=== PATIENT | female | born 1950 | race Caucasian/White ===

== ENCOUNTER 2017-01-05 01:04 | Inpatient (IN) | payer MEDICARE, OTHER ==
[2017-01-05 02:15] LABS: % BASOPHILS 0.3 % (0.0-2.0); % LYMPHOCYTES 25.2 % (20.0-50.0); % MONOCYTES 4.9 % (2.0-10.0); % NEUTROPHILS 68.6 % (40.0-80.0); MEAN CELL VOLUME 88.2 fl (81-100); MEAN CORPUSCULAR HEMOGLOBIN 28.8 pg (27.0-31.0); MEAN CORPUSCULAR HGB CONC 32.7 pg (28.0-36.0); MEAN PLATELET VOLUME 7.9 fl; NEUTROPHILE ABSOLUTE 4.8 Th/cmm (1.8-8.0); RED BLOOD COUNT 4.62 Mil/cmm (3.80-5.10); RED CELL DISTRIBUTION WIDTH 14.1 % (11.5-20.0)
--- NOTE | 2017-01-05 02:16 | ED Physician Chart ---
Chief Complaint/HPI - Patient Information Date Seen:: 01/05/17 Time Seen:: 01:14 Chief Complaint:: agitation History of Present Illness:: THIS IS A 66 YO FEMALE SENT FROM A [facility] FOR [facility]ALUATION AND TREATMENT FOR HER MENTAL ISSUES WELL SIGNIFICANT WEIGHT LOSS. SHE HAS LOSS 22 LBS IN THREE WEEKS. Allergies:: Allergies Allergy/AdvReac Type Severity Reaction Status Date / Time codeine AdvReac Verified 01/05/17 01:32 tetracycline AdvReac Verified 01/05/17 01:32 Vitals:: Vital Signs - 8 hr 01/05/17 01/05/17 01:05 01:10 Temp 98.1 F 98.1 F HR 75 75 RR 18 18 BP 130/79 130/79 O2 Sat % 97 97 Historian:: EMS, Medical Records Review:: Nurse's Note Reviewed, Old Chart Reviewed, Transfer documents Reviewed Review of Systems - Review of Systems General/Constitutional: No fever, No chills, No weight loss, No weakness, No diaphoresis, No edema, No loss of appetite, Other (THIS PATIENT IS UNABLE TO GIVE A REVIEW OF SYSTEMS AT THIS TIME) Skin: No skin lesions, No rash, No bruising Head: No headache, No light-headedness Eyes: No loss of vision, No pain, No diplopia ENT: No earache, No nasal drainage, No sore throat, No tinnitus Neck: No neck pain, No swelling, No thyromegaly, No stiffness, No mass noted Cardio Vascular: No chest pain, No palpitations, No PND, No orthopnea, No edema Pulmonary: No SOB, No cough, No sputum, No wheezing GI: No nausea, No vomiting, No diarrhea, No pain, No melena, No hematochezia, No constipation, No hematemesis G/U: No dysuria, No frequency, No hematuria Musculoskeletal: No bone or joint pain, No back pain, No muscle pain Endocrine: No polyuria, No polydipsia Psychiatric: No prior psych history, No depression, No anxiety, No suicidal ideation Hematopoietic: No bruising, No lymphadenopathy Allergic/Immuno: No urticaria, No angioedema Neurological: No syncope, No focal symptoms, No weakness, No paresthesia, No headache, No seizure, No dizziness, No confusion, No vertigo Past Medical History - Past Medical History Obtainable: Yes Past Medical History: HTN, Asthma/COPD, Dementia, Other (ENCEPHALOPATHY, DEPRESSION, HEP C, BRAIN CA.) Family History: None Social History: Non Smoker, No Alcohol, No Drug Use, Care Facility Surgical History: Appendectomy, other (RIGHT KNEE REPLACEMENT, TUBALIGATION, C- SPINE SURGERY.) Psychiatricy History: Depression Medication: Reviewed Family Medical History - Family Member Niece History Unknown: Yes Physical Exam - Physical Examination General/Constitutional: Awake, Well-developed, well-nourished, Alert, No distress, GCS 15, Non-toxic appearing, Ambulatory Head: Atraumatic Eyes: Lids, conjuctiva normal, PERRL, EOMI Skin: Nl inspection, No rash, No skin lesions, No ecchymosis, Well hydrated, No lymphadenopathy ENMT: External ears, nose nl, Nasal exam nl, Lips, teeth, gums nl Neck: Nontender, Full ROM w/o pain, No JVD, No nuchal rigidity, No bruit, No mass, No stridor Respiratory: Nl effort/Exclusion, Clear to Auscultation, No Wheeze/Rhonchi/Rales Cardio Vascular: RRR, No murmur, gallop, rubs, NL S1 S2 GI: No tenderness/rebounding/guarding, No organomegaly, No hernia, Normal BS's, Nondistended, No mass/bruits, No McBurney tenderness : No CVA tenderness Extremities: No tenderness or effusion, Full ROM, normal strength in all extremities, No edema, Normal digits & nails Neuro/Psych: Alert/oriented, DTR's symmetric, Normal sensory exam, Normal motor strength, Judgement/insight normal, Mood normal (DEPRESSED MOOD), Normal gait, No focal deficits Misc: normal gait, Normal back, No paraspinal tenderness Labs/Radiology/EKG Results - Lab Results Results: Abnormal Lab Results 01/05/17 01/05/17 01/05/17 01:58 01:58 01:58 WBC 7.0 RBC 4.62 Hgb 13.3 D Hct 40.7 D MCV 88.2 MCH 28.8 MCHC Differential 32.7 RDW 14.1 Plt Count 331 D MPV 7.9 Neutrophils % 68.6 Lymphocytes % 25.2 Monocytes % 4.9 Eosinophils % 1.0 Basophils % 0.3 Sodium 137 Potassium 3.4 L Chloride 107 Carbon Dioxide 26.2 Anion Gap 7.2 BUN 5 L Creatinine 0.7 Est GFR ( Amer) > 60.0 Est GFR (Non-Af Amer) > 60.0 BUN/Creatinine Ratio 7.1 Glucose 86 Calcium 9.5 Total Bilirubin 0.6 AST 24 ALT 8 Alkaline Phosphatase 68 Total Protein 7.2 Albumin 3.5 L Globulin 3.7 Albumin/Globulin Ratio 1.0 Triglycerides 110 Cholesterol 159 LDL Cholesterol Direct 105 HDL Cholesterol 41 - EKG Interpretations EKG Time:: 01:38 Rate & Rhythm: RATE=81 SINUS Matheson: RIGHT AXIS Assessment - Assessment General Assessment: PSYCHOSIS ED Septic Shock - . Is Septic Shock (SBP<90, OR Lactate>4 mmol\L) present?: No - <6hrs of presentation: Vital Signs: Vital Signs - 8 hr 01/05/17 01/05/17 01:05 01:10 Temp 98.1 F 98.1 F HR 75 75 RR 18 18 BP 130/79 130/79 O2 Sat % 97 97 Reassessment (Disposition) - Reassessment Reassessment Condition:: Unchanged - Diagnosis Diagnosis:: PSYCHOSIS - Patient Disposition Discharge/Transfer:: Acute Care w/in this hosp Admitting Medical Physician:: Bib Singh Admitting Psych Physician:: Robyn Han Condition at Disposition:: Unchanged
[2017-01-05 02:33] LABS: ALKALINE PHOSPHATASE 68 U/L (34-104); ANION GAP 7.2 (7.0-16.0); BILIRUBIN,TOTAL 0.6 mg/dL (0.3-1.0); BUN - UREA NITROGEN 5 mg/dL (7-25); BUN/CREATININE RATIO 7.1; CALCIUM SERUM 9.5 mg/dL (8.6-10.3); CARBON DIOXIDE 26.2 mEq/L (21.0-31.0); CHLORIDE 107 mEq/L (98-107); CREATININE - SERUM 0.7 mg/dL (0.6-1.2); GLUCOSE 86 mg/dL (70-105); HEMATOCRIT 40.7 % (35.0-45.0); HEMOGLOBIN 13.3 gm/dL (11.7-15.5); PLATELET COUNT 331 Th/cmm (150-400); POTASSIUM SERUM 3.4 mEq/L (3.5-5.1); SGOT 24 U/L (13-39); SGPT/ALT 8 U/L (7-52); SODIUM SERUM 137 mEq/L (136-145)
[2017-01-05 02:34] LABS: CHOLESTEROL 159 mg/dL (<200); TRIGLYCERIDES 110 mg/dL (<150)
[2017-01-05 02:42] LABS: URINE BILIRUBIN NEGATIVE (NEGATIVE); URINE BLOOD NEGATIVE (NEGATIVE); URINE COLOR YELLOW; URINE GLUCOSE (UA) NEGATIVE (NEGATIVE); URINE KETONE NEGATIVE (NEGATIVE); URINE PH 6.5; URINE PROTEIN NEGATIVE (NEGATIVE); URINE UROBILINOGEN 0.2 E.U./dL (0.2 - 1.0)
[2017-01-05 02:44] LABS: URINE BACTERIA NONE SEEN /hpf (NONE SEEN); URINE EPITHELIAL CELLS MANY /lpf (FEW); URINE RBC NONE SEEN /hpf (0-5)
[2017-01-05 02:56] LABS: INR 1.02 (0.5-1.4); PROTHROMBIN TIME (TEST) 10.6 SECONDS (9.5-11.5)
[2017-01-05 03:18] VITALS: BP 130/76
[2017-01-05] MEDS ORDERED: Magnesium Hydroxide (MOM) 30 mL UDC PO PRN (03:24)
[2017-01-05] MEDS ORDERED: Maalox 30 mL Cup PO PRN (03:24)
[2017-01-05] MEDS ORDERED: Lactulose 10 Gm/15 mL 30mL UDC PO PRN (03:25)
[2017-01-05] MEDS ORDERED: Haloperidol Lactate 5 mg/mL 1mL Vial IM ONE (08:03)
[2017-01-05] MEDS: Multivitamin Tab PO SCH (10:00)
[2017-01-05] MEDS ORDERED: Potassium Chloride 20 mEq ER Tab PO ONE (17:07)
--- NOTE | 2017-01-05 19:05 | Psychosocial Evaluation ---
DATE OF SERVICE: 01/05/2017 IDENTIFYING DATA: The patient is a 66-year-old woman, resident of [facility] in [place]. Information obtained directly interviewing the patient as well as reviewing the admission papers. JUSTIFICATION FOR HOSPITALIZATION: The patient is admitted here on a voluntary basis in view of her acute agitation and aggressive behavior. CHIEF COMPLAINT: "I don't understand why " HISTORY OF PRESENT ILLNESS: This is the one of multiple psychiatric hospitalizations for this patient, who is reported to have been getting easily agitated and has been screaming and yelling, and the patient has been referred over here for stabilization from the [facility] in [place]. The patient is being followed up by Dr. Robbins on an outpatient basis and has been diagnosed to have major depressive disorder, rule out bipolar disorder. The patient has been on at one time Seroquel and Zyprexa and also has been receiving the Remeron. The patient has been reporting that she is not able to sleep and has been smoking marijuana for the past couple of weeks. The patient at this time is adamant that she should be allowed to call her children to come and then take care of her. The patient is very frustrated and getting agitated. The patient has to be given a dose of Ativan, which has not been able to calm her down. Then, it was changed to a dose of the Haldol along with the Ativan. PAST PSYCHIATRIC HISTORY: Please refer to the above. The patient was hospitalized under my care in March. MEDICAL HISTORY: Physical examination is requested to be done by Dr. Gonzalez. SUBSTANCE ABUSE HISTORY: The patient has been smoking marijuana, but denies any alcohol abuse. PHYSICAL OR SEXUAL ABUSE HISTORY: None. LEGAL PROBLEMS: None at this time. SOCIAL HISTORY: The patient is a resident of [facility]. STRENGTH AND ASSETS: The patient is very irritable, angry, and has been getting easily agitated. MENTAL STATUS EXAMINATION: The patient is a 66-year-old woman, looking her stated age, very agitated. The patient is insisting that she should be transferred to [facility] rather than to [place]. The patient is stating that she . The patient has been getting easily agitated and upset. Insight and judgment at this time are noted to be impaired. Impulse control seems to be poor. The patient has short-term memory problems, but long-term memory seems to be intact. The patient denies any active hallucinations or delusions are noted. DIAGNOSTIC IMPRESSION: AXIS I: 1a. Major depressive disorder, recurrent and severe. 1b. Rule out bipolar disorder. AXIS II: None. AXIS III: As per Dr. Gonzalez. IMMEDIATE TREATMENT PLAN: The patient is going to be observed on inpatient unit, provided with supportive psychotherapy. The patient is going to be encouraged to participate in the groups and verbalize the concerns. The patient is going to be continued on the Remeron and low dose of the Seroquel is going to be given to her. ESTIMATED LENGTH OF STAY: 5-7 days. DISCHARGE CRITERIA: When she no longer a threat to self or others and be able to cope up with the stress. JOB# [id number]
--- NOTE | 2017-01-05 20:22 | Consultation ---
DATE OF CONSULTATION: 01/05/2017 ATTENDING PHYSICIAN: Robny Han M.D. HISTORY OF PRESENT ILLNESS: This is a 66-year-old female with medical history of encephalopathy, who was brought in because of agitation. A few hours prior to admission, the patient was found to be uncooperative, belligerent, and agitated towards staff and residents. She was brought down to the Emergency Room and subsequently admitted to [facility]. PAST MEDICAL HISTORY: 1. Essential hypertension. 2. Bronchial asthma/COPD. 3. Dementia with behavioral disturbance. 4. Metabolic encephalopathy. 5. Depression. 6. Hepatitis C. 7. History of brain CA. 8. Malnutrition. PAST SURGICAL HISTORY: 1. Status post right total knee replacement. 2. Status post tubal ligation. 3. Status post C-spine surgery. CURRENT MEDICATIONS: The patient is currently on acetaminophen, haloperidol, Atarax, lactulose, lorazepam, magnesium hydroxide, Mirtazapine, multivitamins, pyridoxine, tramadol, Zolpidem. ALLERGIES: ALLERGIC TO CODEINE AND TETRACYCLINE. FAMILY AND SOCIAL HISTORY: I was not able to obtain from the patient because she remains uncooperative. REVIEW OF SYSTEMS: Again, I was not able to decipher directly from the patient because of her mental status. PHYSICAL EXAMINATION: GENERAL: The patient is alert, somewhat agitated at the present time, uncooperative. VITAL SIGNS: Blood pressure is 157/78, pulse 96, temperature 98.6 degrees. SKIN: Good turgor, warm, no rash, no jaundice appreciated. HEENT: Head: Normocephalic, atraumatic. Eyes: Extraocular muscles intact, unable to assess the pupils because the patient is uncooperative, pink conjunctivae, anicteric sclerae. Nose: Midline nasal septum. Mouth: Moist mucosa with adequate dentition. NECK: Supple, no adenopathy, no thyromegaly, no bruits. Trachea palpated in the midline. CHEST AND CVS: S1, S2. No rub, murmur, no gallop appreciated. Point of maximal impulse fifth intercostal space left midclavicular line. No abdominal or femoral bruits appreciated. LUNGS: Equal expansion. No use of accessory muscles. No supraclavicular retractions. Decreased breath sounds. Clear to auscultation without any wheeze. BREAST: Unable to perform, the patient was not cooperative. ABDOMEN: Flat, soft. Positive for bowel sounds. No bruits either diastolic or systolic. RECTAL AND GENITOURINARY: Again, I was not able to perform because the patient is not cooperative. MUSCULOSKELETAL: No effusions present in her joints with adequate range of motion. EXTREMITIES: No evidence of edema, cyanosis nor clubbing with palpable femoral, unable to fully appreciate popliteal and dorsalis pedis pulses. NEUROLOGIC: The patient is awake, verbal, but confused, agitated at the present time, so I was not able to pursue further my neuro exam. LABORATORY DATA: Did reveal a white count 7, hemoglobin 13.3, hematocrit 40.7, platelets 221, polys 68%. Sodium 137, potassium 3.4, chloride 107, bicarbonate 26, BUN 5, creatinine 0.7, albumin 3.5, triglycerides 110, cholesterol 159, LDL 105, HDL , TSH 1.67. IMPRESSION: 1. Acute decompensation of psychosis. 2. Dementia with behavioral disturbance. 3. Depression. 4. Metabolic encephalopathy. 5. Hepatitis C. 6. History of brain CA. 7. Malnutrition. 8. Hypokalemia. PLAN: 1. Replace potassium. 2. Continue all the psych meds. 3. Continue with psych support. Thank you, Dr. Han for this consult. I will follow the patient closely with you. JOB# [id number]
[2017-01-05] MEDS ORDERED: PYRIDOXINE PO SCH (21:00)
[2017-01-05] MEDS ORDERED: MELATONIN PO SCH (21:00)
[2017-01-06] MEDS: Multivitamin Tab PO SCH (08:09)
--- NOTE | 2017-01-06 14:30 | Psych Progress Note ---
Psych Progress Note - Intro Date of Progress Note: 01/06/17 - Assessment Assessment: I am upset . I need to go to [facility]. - Vitals, I&O Vitals: Vital Signs - 24 hr 01/05/17 01/06/17 01/06/17 20:00 06:51 10:53 Temp 98.2 F HR 98 HR [Left Radial 98 ] RR 19 21 21 BP 136/77 O2 Sat % 99 - ROS Psychological ROS: Report: Anxiety, Behavioral Disorder, Concentration difficulty, Depression, Irritability, Memory difficulties, Mood swings, Sleep Disturbances Neurological: Report: Behavorial changes, Dizziness, Gait Disturbance - Objective Psych General Appearance: Report: No acute distress, Casually dressed Psych Behavior: Report: Alert, Restless, Agitated Psych Speech: Report: Loud Psych Mood: Report: Angry, Frustrated, Hostile, Irritable, Labile Psych Affect: Report: Approp. content of speech, Labile Psych Thought Process: Report: Paranoid Psych Cognition: Report: Grossly Intact Psych Insight: Report: Impaired Psych Judgement: Report: Impaired - Plan Plan: To continue currrent meds and follow patient with supportive therapy.. - Review of Relevant Data Review of Relevant Data: I have reviewed the following items and time patience (where applicable) has been applied. - Medications Current Medications: Current Medications Acetaminophen (Tylenol) 650 mg PO Q4HR PRN PRN Reason: Pain (Mild) Stop: 03/06/17 03:24 Al Hydrox/Mg Hydrox/Simethicone (Maalox) 30 ml PO Q6H PRN PRN Reason: Dyspepsia Stop: 03/06/17 03:23 Hydroxyzine HCl (Atarax) 10 mg PO HS EVANGELISTA PRN Reason: Protocol Stop: 03/06/17 20:59 Last Admin: 01/05/17 20:45 Dose: 10 mg Lactulose (Cephulac) 20 gm PO Q6HR PRN PRN Reason: Constipation Stop: 03/06/17 03:24 Lorazepam (Ativan) 1 mg PO Q6H PRN; Protocol PRN Reason: Anxiety/Agitation Stop: 03/06/17 03:23 Last Admin: 01/06/17 08:09 Dose: 1 mg Magnesium Hydroxide (Milk Of Magnesia) 30 ml PO HS PRN PRN Reason: Constipation Stop: 03/06/17 03:23 Mirtazapine (Remeron) 30 mg PO HS EVANGELISTA Stop: 03/06/17 20:59 Last Admin: 01/05/17 20:45 Dose: 30 mg Multivitamins/Vitamin C (Theragran) 1 tab PO DAILY EVANGELISTA Stop: 03/06/17 08:59 Last Admin: 01/06/17 08:09 Dose: 1 tab Pyridoxine HCl (Vitamin B6) 200 mg PO DAILY EVANGELISTA Stop: 03/06/17 08:59 Last Admin: 01/06/17 08:08 Dose: 200 mg Senna (Senna) 17.2 mg PO QPM EVANGELISTA Stop: 03/06/17 16:59 Last Admin: 01/05/17 16:39 Dose: 17.2 mg Tramadol HCl (Ultram) 50 mg PO Q4H PRN PRN Reason: Pain (Moderate) Stop: 03/06/17 03:24 Last Admin: 01/06/17 08:41 Dose: 50 mg Zolpidem Tartrate (Ambien) 5 mg PO HS PRN PRN Reason: Insomnia Stop: 03/06/17 03:23 Last Admin: 01/05/17 21:25 Dose: 5 mg
--- NOTE | 2017-01-07 01:32 | Admit Criteria Form ---
Admit Criteria Forms - Admit Criteria Diagnosis: PSYCHIATRIC DISORDERS (Place 'X' for any and all applicable criteria): Ongoing inpatient care may be needed for 1 or more of the following(1)(2)(3)(4)( 6)(7)(8): [ ]I. Danger to self or others not manageable at lower level of care. [ ]II. Grave disability (eg, inability to perform self care necessary at lower level of care) [ ]III. Agitation or inappropriate behavior interfering with care for primary condition (eg, attempting to discontinue lines or drains prematurely, unable to cooperate with respiratory care) [X ]IV. Severe disability or disorder indicated by ALL of the following: [X ]a) Severe behavioral health disorder-related symptoms or condition indicated by 1 or more of the following: [ ]i) Severe problem with cognition, memory, judgment, or impulse control [ X]ii) Severe clinical manifestations (eg, hallucinations , delusions, other acute psychotic symptoms, elena, extreme agitation or anxiety) [ ]b) Patient management at lower level of care is not feasible until acute intervention or modification is initiated. Extended stay beyond goal length of stay for the primary condition may be needed until ALLof the following are present(1)(2)(3)(4)7)43)(23): [ ]a) Danger to self or others is absent or manageable at lower level of care [ ]b) Behavior crisis management, including physical or chemical restraints, is required and is not available at a lower level of care. [ ]c) Behavioral symptoms (e.g., agitation, somnolence, inappropriate behavior) are present, and are not manageable at a lower level of care. [ ]d) Patient cannot understand follow-up treatment and crisis plan. [ ]e) Provider and supports are sufficiently available at lower level of care. [ ]f) Patient can participate (e.g., verify absence of plan for harm) and is in needed of monitoring. The original [facility] content created by [facility] has been revised. The portions of the content which have been revised are identified through the use of italic text or in bold, and [facility] has neither reviewed nor approved the modified material. All other unmodified content is copyright [facility]. Please see references footnoted in the original [facility] edition 2017 Admit Criteria Met?: Yes
[2017-01-07] MEDS: Albuterol/Ipratropium Neb 3 ML AERS HHN PRN ×2 (06:47→10:39)
[2017-01-07] MEDS: Multivitamin Tab PO SCH (08:23)
--- NOTE | 2017-01-07 10:03 | Diagnostic Imaging Report ---
Portable chest x-ray HISTORY: Cough, shortness of breath The heart size is normal. Atherosclerotic calcification seen in the aorta. No acute focal pulmonary parenchymal processes. There is deformity involving the lateral aspect of the left 10th rib appears related to an old fracture. Degenerative changes seen to the spine. Surgical changes noted in the cervical spine. IMPRESSION: 1. No definite acute focal pulmonary processes 2. Atherosclerotic vascular changes
--- NOTE | 2017-01-07 18:36 | Psych Progress Note ---
Psych Progress Note - Intro Date of Progress Note: 01/07/17 - Assessment Assessment: I am depressed. - Vitals, I&O Vitals: Vital Signs - 24 hr 01/06/17 01/06/17 01/06/17 20:00 20:20 21:10 Temp 98.1 F HR 97 97 RR 19 19 18 BP 119/69 O2 Sat % 93 95 01/07/17 01/07/17 01/07/17 05:56 06:52 10:45 Temp 97.2 F HR 97 98 97 RR 20 14 16 BP 133/77 O2 Sat % 95 93 97 01/07/17 15:23 Temp 98.0 F HR 90 RR 19 BP 128/78 O2 Sat % 96 I&O: Intake & Output 01/05/17 01/06/17 01/07/17 01/08/17 06:59 06:59 06:59 06:59 Intake Total 950 Balance 950 - ROS Psychological ROS: Report: Anxiety, Behavioral Disorder, Concentration difficulty, Depression, Irritability, Memory difficulties, Mood swings, Sleep Disturbances Neurological: Report: Behavorial changes, Dizziness, Gait Disturbance - Objective Psych General Appearance: Report: No acute distress, Casually dressed Psych Behavior: Report: Alert, Restless, Agitated Psych Speech: Report: Loud Psych Mood: Report: Angry, Frustrated, Hostile, Irritable, Labile Psych Affect: Report: Approp. content of speech, Labile Psych Thought Process: Report: Paranoid Psych Cognition: Report: Grossly Intact Psych Insight: Report: Impaired Psych Judgement: Report: Impaired - Plan Plan: To continue currrent meds and follow patient with supportive therapy.. - Review of Relevant Data Review of Relevant Data: I have reviewed the following items and time patience (where applicable) has been applied. Psych Data Reviewed: Meds - Medications Current Medications: Current Medications Acetaminophen (Tylenol) 650 mg PO Q4HR PRN PRN Reason: Pain (Mild) Stop: 03/06/17 03:24 Last Admin: 01/07/17 12:40 Dose: 650 mg Al Hydrox/Mg Hydrox/Simethicone (Maalox) 30 ml PO Q6H PRN PRN Reason: Dyspepsia Stop: 03/06/17 03:23 Albuterol/Ipratropium (Duoneb Neb) 3 ml HHN Q4H PRN PRN Reason: Shortness of Breath Stop: 03/07/17 15:21 Last Admin: 01/07/17 10:39 Dose: 3 ml Hydroxyzine HCl (Atarax) 10 mg PO HS EVANGELISTA PRN Reason: Protocol Stop: 03/06/17 20:59 Last Admin: 01/06/17 21:18 Dose: 10 mg Lactulose (Cephulac) 20 gm PO Q6HR PRN PRN Reason: Constipation Stop: 03/06/17 03:24 Lorazepam (Ativan) 1 mg PO Q6H PRN; Protocol PRN Reason: Anxiety/Agitation Stop: 03/06/17 03:23 Last Admin: 01/06/17 16:34 Dose: 1 mg Magnesium Hydroxide (Milk Of Magnesia) 30 ml PO HS PRN PRN Reason: Constipation Stop: 03/06/17 03:23 Mirtazapine (Remeron) 30 mg PO HS EVANGELISTA Stop: 03/06/17 20:59 Last Admin: 01/06/17 21:17 Dose: 30 mg Multivitamins/Vitamin C (Theragran) 1 tab PO DAILY EVANGELISTA Stop: 03/06/17 08:59 Last Admin: 01/07/17 08:23 Dose: 1 tab Pyridoxine HCl (Vitamin B6) 200 mg PO DAILY EVANGELISTA Stop: 03/06/17 08:59 Last Admin: 01/07/17 09:36 Dose: 200 mg Senna (Senna) 17.2 mg PO QPM EVANGELISTA Stop: 03/06/17 16:59 Last Admin: 01/07/17 17:54 Dose: Not Given Tramadol HCl (Ultram) 50 mg PO Q4H PRN PRN Reason: Pain (Moderate) Stop: 03/06/17 03:24 Last Admin: 01/06/17 08:41 Dose: 50 mg Zolpidem Tartrate (Ambien) 5 mg PO HS PRN PRN Reason: Insomnia Stop: 03/06/17 03:23 Last Admin: 01/05/17 21:25 Dose: 5 mg
--- NOTE | 2017-01-08 00:22 | Admit Criteria Form ---
Admit Criteria Forms - Admit Criteria Diagnosis: PSYCHIATRIC DISORDERS (Place 'X' for any and all applicable criteria): Ongoing inpatient care may be needed for 1 or more of the following(1)(2)(3)(4)( 6)(7)(8): [ ]I. Danger to self or others not manageable at lower level of care. [ ]II. Grave disability (eg, inability to perform self care necessary at lower level of care) [ ]III. Agitation or inappropriate behavior interfering with care for primary condition (eg, attempting to discontinue lines or drains prematurely, unable to cooperate with respiratory care) [ X]IV. Severe disability or disorder indicated by ALL of the following: [X ]a) Severe behavioral health disorder-related symptoms or condition indicated by 1 or more of the following: [ ]i) Severe problem with cognition, memory, judgment, or impulse control [ X]ii) Severe clinical manifestations (eg, hallucinations , delusions, other acute psychotic symptoms, elena, extreme agitation or anxiety) [X ]b) Patient management at lower level of care is not feasible until acute intervention or modification is initiated. Extended stay beyond goal length of stay for the primary condition may be needed until ALLof the following are present(1)(2)(3)(4)(7)15)(23): [ ]a) Danger to self or others is absent or manageable at lower level of care [ ]b) Behavior crisis management, including physical or chemical restraints, is required and is not available at a lower level of care. [ ]c) Behavioral symptoms (e.g., agitation, somnolence, inappropriate behavior) are present, and are not manageable at a lower level of care. [ ]d) Patient cannot understand follow-up treatment and crisis plan. [ ]e) Provider and supports are sufficiently available at lower level of care. [ ]f) Patient can participate (e.g., verify absence of plan for harm) and is in needed of monitoring. The original [facility] content created by [facility] has been revised. The portions of the content which have been revised are identified through the use of italic text or in bold, and [facility] has neither reviewed nor approved the modified material. All other unmodified content is copyright [facility]. Please see references footnoted in the original [facility] edition 2017 Admit Criteria Met?: Yes
[2017-01-08] MEDS: Multivitamin Tab PO SCH (08:39)
--- NOTE | 2017-01-08 10:41 | Psych Progress Note ---
Psych Progress Note - Intro Date of Progress Note: 01/08/17 - Assessment Assessment: I am upset . i need to get of here. - Vitals, I&O Vitals: Vital Signs - 24 hr 01/07/17 01/07/17 01/07/17 10:45 15:23 20:00 Temp 98.0 F HR 97 90 RR 16 19 20 BP 128/78 O2 Sat % 97 96 01/07/17 01/07/17 01/08/17 20:20 20:45 05:55 Temp 98.0 F 98.0 F HR 98 100 101 RR 16 20 20 BP 132/76 132/70 O2 Sat % 97 95 95 I&O: Intake & Output 01/06/17 01/07/17 01/08/17 01/09/17 06:59 06:59 06:59 06:59 Intake Total 950 1400 Balance 950 1400 - ROS Psychological ROS: Report: Behavioral Disorder, Concentration difficulty, Irritability, Memory difficulties, Mood swings, Sleep Disturbances Neurological: Report: Behavorial changes, Dizziness, Gait Disturbance - Objective Psych General Appearance: Report: No acute distress, Casually dressed Psych Behavior: Report: Alert, Restless, Agitated Psych Speech: Report: Loud Psych Mood: Report: Angry, Frustrated, Hostile, Irritable, Labile Psych Affect: Report: Approp. content of speech, Labile Psych Thought Process: Report: Paranoid Psych Cognition: Report: Grossly Intact Psych Insight: Report: Impaired Psych Judgement: Report: Impaired - Plan Plan: To continue currrent meds and involve case planner to contact the facility to see if she is allowed to return. - Review of Relevant Data Review of Relevant Data: I have reviewed the following items and time patience (where applicable) has been applied. Psych Data Reviewed: Meds (Patient is still agitated.) - Medications Current Medications: Current Medications Acetaminophen (Tylenol) 650 mg PO Q4HR PRN PRN Reason: Pain (Mild) Stop: 03/06/17 03:24 Last Admin: 01/07/17 12:40 Dose: 650 mg Al Hydrox/Mg Hydrox/Simethicone (Maalox) 30 ml PO Q6H PRN PRN Reason: Dyspepsia Stop: 03/06/17 03:23 Albuterol/Ipratropium (Duoneb Neb) 3 ml HHN Q4H PRN PRN Reason: Shortness of Breath Stop: 03/07/17 15:21 Last Admin: 01/07/17 10:39 Dose: 3 ml Hydroxyzine HCl (Atarax) 10 mg PO HS EVANGELISTA PRN Reason: Protocol Stop: 03/06/17 20:59 Last Admin: 01/07/17 20:46 Dose: 10 mg Lactulose (Cephulac) 20 gm PO Q6HR PRN PRN Reason: Constipation Stop: 03/06/17 03:24 Lorazepam (Ativan) 1 mg PO Q6H PRN; Protocol PRN Reason: Anxiety/Agitation Stop: 03/06/17 03:23 Last Admin: 01/06/17 16:34 Dose: 1 mg Magnesium Hydroxide (Milk Of Magnesia) 30 ml PO HS PRN PRN Reason: Constipation Stop: 03/06/17 03:23 Mirtazapine (Remeron) 30 mg PO HS EVANGELISTA Stop: 03/06/17 20:59 Last Admin: 01/07/17 20:46 Dose: 30 mg Multivitamins/Vitamin C (Theragran) 1 tab PO DAILY EVANGELISTA Stop: 03/06/17 08:59 Last Admin: 01/08/17 08:39 Dose: 1 tab Pyridoxine HCl (Vitamin B6) 200 mg PO DAILY EVANGELISTA Stop: 03/06/17 08:59 Last Admin: 01/08/17 08:38 Dose: 200 mg Senna (Senna) 17.2 mg PO QPM EVANGELISTA Stop: 03/06/17 16:59 Last Admin: 01/07/17 17:54 Dose: Not Given Tramadol HCl (Ultram) 50 mg PO Q4H PRN PRN Reason: Pain (Moderate) Stop: 03/06/17 03:24 Last Admin: 01/08/17 08:39 Dose: 50 mg Zolpidem Tartrate (Ambien) 5 mg PO HS PRN PRN Reason: Insomnia Stop: 03/06/17 03:23 Last Admin: 01/07/17 20:45 Dose: 5 mg
== END 2017-01-08 16:00 | disposition home or self-care (01) | DRG 885 ==
LOC: ER 01:04 → GERO 02:45
PROVIDERS: ADMIT Psychiatry & Neurology Psychiatry; ATTEND Psychiatry & Neurology Psychiatry
DX: F33.2 Major depressive disorder, recurrent severe without psychotic features (principal); G93.41 Metabolic encephalopathy; E46 Unspecified protein-calorie malnutrition; F03.91 Unspecified dementia, unspecified severity, with behavioral disturbance; F29 Unspecified psychosis not due to a substance or known physiological condition; B19.20 Unspecified viral hepatitis C without hepatic coma; E87.6 Hypokalemia; I10 Essential (primary) hypertension; J44.9 Chronic obstructive pulmonary disease, unspecified; Z90.49 Acquired absence of other specified parts of digestive tract; Z98.51 Tubal ligation status; Z96.651 Presence of right artificial knee joint; Z88.5 Allergy status to narcotic agent; Z88.1 Allergy status to other antibiotic agents; Z85.841 Personal history of malignant neoplasm of brain; Z68.23 Body mass index [BMI] 23.0-23.9, adult; F12.90 Cannabis use, unspecified, uncomplicated
CPT/HCPCS: 36415-UA; 71010-TC; 80053-TC; 80061-TC; 81001-TC; 84443-TC; 84484-TC; 85025-TC; 85610-TC; 85730-TC; 86592-TC; 90899; 93005; 94640; 94760; G0410; J0696; J1630; J2060; Z7610